=== PATIENT | male | born 1945 | race Caucasian/White ===

== ENCOUNTER 2018-03-08 14:23 | Emergency (ER) | payer MEDICARE ==
[~2018-03-08] VITALS: Ht 231.1 cm; Wt 81.6 kg
[~2018-03-08 14:23] MED LIST: AMLO5TAB5 PO; ASPI-587 PO; CLON0.3T4 PO; FOSI20TA3 PO; GLMP4T PO; INSU100C7 SQ; LEVO500T69 PO; NFMET1000 PO; OXYB5TAB9 PO; PHEN200T27 PO; TMSL.4C PO; TRAM50TA2 PO
--- OUTSIDE RECORDS SUMMARY | 2018-03-08 14:27 | XMS REPORT | Continuity of Care Document ---
Author Author [facility] Organization [facility] Address Unknown Phone Unavailable Allergies There is no data. Medications There is no data. Problems There is no data. Procedures There is no data. Results There is no data. Encounters ACCT No. Visit Date/Time Discharge Status Pt. Type Provider Facility Loc./Unit Complaint [id number] 06/01/2013 09:24:00 06/01/2013 12:03:00 DIS Emergency
[2018-03-08] MEDS ORDERED: LIDOCAINE UROJET 2% GEL 10 ML PKG TOP ONE (16:00)
[2018-03-08 16:05] LABS: BILIRUBIN,URINE NEGATIVE (NEGATIVE); CLARITY,URINE CLEAR; COLOR,URINE YELLOW; GLUCOSE, URINE (UA) 2+ (NEGATIVE); KETONES,URINE NEGATIVE (NEGATIVE); LEUKOCYTE ESTERASE ,URINE 1+ (NEGATIVE); NITRITE,URINE NEGATIVE (NEGATIVE); PH,URINE 5 (5-9); PROTEIN,URINE 1+ (NEGATIVE); UROBILINOGEN,URINE NORMAL (NORMAL)
[2018-03-08 16:21] LABS: BACTERIA,URINE NEGATIVE /HPF; WBC,URINE 0-2 /HPF
--- NOTE | 2018-03-08 16:43 | ED GU-Male ---
General Chief Complaint: Catheter/Drain/Tube Problems Stated Complaint: WANTS CATHETER TAKEN OUT Nursing Triage Note: ARRIVED VIA AMB TO ROOM 06. PT HAD A URINARY CATH PLACED FOR RETNSION. HAS AN APPT WITH HIS DR ON THE IN COLLINS ET WOULD LIKE IT REMOVED DUE TO PAIN. Source: patient Exam Limitations: no limitations History of Present Illness Date Seen by Provider: Mar 08, 2018 Time Seen by Provider: 15:45 Initial Comments Patient is a 73-year-old male who presents to emergency room with complaints of in his indwelling urinary catheter removed. He was seen at [facility] 1 week ago for urinary retention and have the catheter placed and was told to have it removed tomorrow (Friday) at his doctor's office. He cannot get an appointment until Friday03/11/18. Reports pain associated from the catheter and would like it removed. Allergies and Home Medications Allergies Coded Allergies: No Known Drug Allergies (Unverified , 06/01/13) Home Medications Amlodipine Besylate 5 Mg Tablet, 5 MG PO BID, (Reported) Aspirin 81 Mg Tablet.dr, 81 MG PO DAILY, (Reported) Clonidine Hcl 0.3 Mg Tablet, 0.1 EACH PO BID, (Reported) Clonidine Hcl 0.3 Mg Tablet, 0.2 EACH PO 1200, (Reported) Fosinopril Sodium 20 Mg Tablet, 10 EACH PO BID, (Reported) Glimepiride 4 Mg Tab, 4 MG PO DAILY@0630, (Reported) Insulin Glargine,Hum.rec.anlog 100 Unit/1 Ml Cartridge, 30 UNIT SQ HS, (Reported ) Levofloxacin 500 Mg Tab, 1 EACH PO DAILY Prescribed by: DANIEL BERRIOS on 06/01/13 1143 Metformin Hcl 1,000 Mg Tablet, 1,000 MG PO BID WITH MEALS, (Reported) Oxybutynin Chloride 5 Mg Tablet, 15 MG PO BID, (Reported) Phenazopyridine Hcl 200 Mg Tablet, 1 EACH PO TID PRN for SPASMS Prescribed by: DANIEL BERRIOS on 06/01/13 1143 Tamsulosin Hcl 0.4 Mg Cap, 0.4 MG PO DAILY Prescribed by: DANIEL BERRIOS on 06/01/13 1143 Tramadol Hcl 50 Mg Tablet, 50 MG PO Q4H PRN for PAIN Prescribed by: DANIEL BERRIOS on 06/01/13 1143 Patient Home Medication List Home Medication List Reviewed: Yes Review of Systems Review of Systems Constitutional: no symptoms reported, see HPI Genitourinary: see HPI, pain (pain to tip of penis), other (catheter in place) All Other Systemes Reviewed Negative Unless Noted: Yes Past Hxshaik-Dxcwmy-Rbkicb Hx Past Med/Social Hx: Reviewed Nursing Past Med/Soc Hx Patient Social History Alcohol Use: Denies Use Recreational Drug Use: No Smoking Status: Former Smoker Recent Foreign Travel: No Contact w/Someone Who Travel: No Recent Infectious Disease Expo: No Immunizations Up To Date Date of Pneumonia Vaccine: Apr 07, 2011 Date of Influenza Vaccine: Feb 05, 2013 Past Medical History Surgeries: Yes (SINUS) Respiratory: No Cardiac: Yes Hypertension Neurological: No Genitourinary: Yes (URINARY RETENSION, LEG BAG WITH CATH) Gastrointestinal: No Musculoskeletal: Yes Arthritis Endocrine: Yes Diabetes, Insulin dep Cancer: No Psychosocial: No Family Medical History Reviewed Nursing Family Hx Physical Exam Vital Signs Vital Signs - First Documented 03/08/18 15:30 Temp 98.0 Pulse 93 Resp 16 B/P (MAP) 135/78 (97) Pulse Ox 95 O2 Delivery Room Air Capillary Refill : Less Than 3 Seconds Height, Weight, BMI Height: 7'7.00" Weight: 180lbs. oz. 81.871019xg; BMI Method:Stated General Appearance: WD/WN, no apparent distress Cardiovascular: normal peripheral pulses, regular rate, rhythm, no edema, no gallop, no JVD, no murmur Respiratory: chest non-tender, lungs clear, normal breath sounds, no respiratory distress, no accessory muscle use Male: normal genitalia, other Extremities: normal capillary refill Neurologic/Psychiatric: alert, normal mood/affect, oriented x 3 Skin: normal color, warm/dry Progress/Results/Core Measures Suspected Sepsis Recent Fever Within 48 Hours: No Infection Criteria Present: None New/Unexplained Altered Menta: No Sepsis Screen: No Definite Risk SIRS Temperature:98.0 Pulse: 93 Respiratory Rate: 16 Blood Pressure 135 /78 Mean: 97 Results/Orders Lab Results Laboratory Tests Test 03/08/18 15:58 Range/Units Urine Color YELLOW Urine Clarity CLEAR Urine pH 5 5-9 Urine Specific [place] 1.005 L 1.016-1.022 Urine Protein 1+ H NEGATIVE Urine Glucose (UA) 2+ H NEGATIVE Urine Ketones NEGATIVE NEGATIVE Urine Nitrite NEGATIVE NEGATIVE Urine Bilirubin NEGATIVE NEGATIVE Urine Urobilinogen NORMAL NORMAL MG/DL Urine Leukocyte Esterase 1+ H NEGATIVE Urine RBC (Auto) 5+ H NEGATIVE Urine RBC 2-5 H /HPF Urine WBC 0-2 /HPF Urine Squamous Epithelial Cells NONE /HPF Urine Crystals NONE /LPF Urine Bacteria NEGATIVE /HPF Urine Casts NONE /LPF Urine Mucus NEGATIVE /LPF Urine Culture Indicated NO My Orders Orders - ALVIN LI Ua Culture If Indicated (03/08/18 15:46) Lidocaine 2% (Urojet) (Xylocaine Urojet) (03/08/18 16:00) Medications Given in ED Vital Signs/I&O 03/08/18 03/08/18 15:30 16:50 Temp 98.0 98.0 Pulse 93 93 Resp 16 16 B/P (MAP) 135/78 (97) 135/78 (97) Pulse Ox 95 95 O2 Delivery Room Air Capillary Refill : Less Than 3 Seconds Blood Pressure Mean: 97 Progress Note : Time: 16:42 Progress Note I have seen and evaluated the patient. I have informed him of UA results. He agrees to leave the catheter in until he sees his PCP and to use the lidocaine as needed for comfort. Return precautions were given. Departure Impression Primary Impression: Urinary retention Disposition: 01 HOME, SELF-CARE Condition: Stable/Unchanged Departure-Patient Inst. Decision time for Depature: 16:42 Referrals: LEEROY PAIGE DO (PCP) Primary Care Physician Patient Instructions: How to Care for Your [place] Catheter, Male Add. Discharge Instructions: Keep your appointment as scheduled on Friday to have the catheter removed by her primary care provider. You may use the lidocaine jelly as needed for comfort. Return back to the emergency room for any worsening symptoms or concerns as needed. All discharge instructions reviewed with patient and/or family. Voiced understanding. ALVIN LI Mar 08, 2018 16:43
[2018-03-08 16:50] VITALS: BP 135/78
== END 2018-03-08 16:50 | disposition home or self-care (01) ==
LOC: EDUNIT# 14:23 → ER 14:24
DX: R33.9 Retention of urine, unspecified (principal); I10 Essential (primary) hypertension; E11.9 Type 2 diabetes mellitus without complications; Z96.0 Presence of urogenital implants; Z79.82 Long term (current) use of aspirin; Z79.4 Long term (current) use of insulin; Z87.891 Personal history of nicotine dependence
CPT/HCPCS: 81000; 99282